=== PATIENT | female | born 1990 | race Caucasian/White ===

== ENCOUNTER 2024-07-19 11:25 | Emergency (ER) | payer MEDICAID ==
[~2024-07-19] VITALS: Ht 167.6 cm; Wt 65.0 kg
[2024-07-19 11:27] VITALS: BP 125/80; PULSE 82; RESP 20; TEMP 98.7; O2SAT 99
[2024-07-19] MEDS ORDERED: ONDANSETRON HCL 4MG/2ML INJ IV STA (11:51)
[2024-07-19] MEDS ORDERED: FAMOTIDINE 20MG/2ML VIAL IV STA (11:51)
[2024-07-19] MEDS ORDERED: SODIUM CHLORIDE 0.9% 1,000 ML IV ONE (12:00)
[2024-07-19] MEDS ORDERED: MORPHINE SULFATE 4 MG/ML INJ (FOR IV/IM USE) IV ONE (12:00)
== END 2024-07-19 14:55 | disposition left against medical advice (07) ==
LOC: ER 11:25
DX: R10.13 Epigastric pain (principal)
CPT/HCPCS: 99283; J7030